=== PATIENT | female | born 1970 | race Caucasian/White ===

== ENCOUNTER 2017-09-03 17:13 | Emergency (ER) | payer SELFPAY ==
[~2017-09-03] VITALS: Ht 161.3 cm; Wt 57.9 kg
[2017-09-03 17:29] VITALS: TEMP 36.9; Ht 161.3 cm; Wt 57.9 kg
[2017-09-03] MEDS ORDERED: ACETAMINOPHEN 500 MG TAB PO STA (17:50)
[2017-09-03 18:37] LABS: URINE APPEARANCE CLEAR (CLEAR); URINE BILIRUBIN NEG (NEG); URINE COLOR YELLOW; URINE EPITHELIAL CELL AUTO >30 /lpf (0-5); URINE NITRITE NEG (NEG); URINE SPECIFIC GRAVITY 1.019 (1.000-1.030); UROBILINOGEN NEG (NEG)
[2017-09-03 18:38] LABS: MANUAL MICROSCOPIC REQUIRED? NO; REVIEW REQ? NO
[2017-09-03 18:44] LABS: BASO % 0.4 %; BASO ABS # 0.05 K/uL (0-0.2); COMPLETE YES; EOS % 0.9 %; HEMATOCRIT 43.9 % (37-47); IG% 0.2 %; LYMPH % 25.1 %; LYMPH ABS # 3.29 K/uL (1.2-3.4); MEAN CELL VOLUME 93.8 fL (80-100); MEAN CORPUSCULAR HEMOGLOBIN 31.4 pg (25-34); MEAN CORPUSCULAR HGB CONC 33.5 g/dl (32-36); MEAN PLATELET VOLUME 9.6 fL (7.4-10.4); MONO % 6.1 %; NEUT % 67.3 %; PLATELET COUNT 398 K/uL (130-400); RED BLOOD COUNT 4.68 M/uL (4.2-5.4); WHITE BLOOD COUNT 13.12 K/uL (4.8-10.8)
[2017-09-03 19:15] LABS: ALT/SGPT 19 U/L (12-78); AST/SGOT 10 U/L (15-37); BLOOD UREA NITROGEN 8 mg/dl (7-18); BUN/CREATININE RATIO 11.8 (10-20); CALCIUM 9.1 mg/dl (8.5-10.1); CARBON DIOXIDE 23 mmol/L (21-32); CHLORIDE 107 mmol/L (98-107); CREATININE 0.66 mg/dl (0.60-1.20); GLUCOSE 74 mg/dl (70-99); POTASSIUM 3.6 mmol/L (3.5-5.1); SODIUM 137 mmol/L (136-145)
[2017-09-03 19:26] LABS: ALKALINE PHOSPHATASE 81 U/L (45-117)
[2017-09-03 20:08] LABS: BENZODIAZEPINE, URINE NEG (NEG); COCAINE,URINE NEG (NEG); PHENCYCLIDINE, URINE NEG (NEG)
[2017-09-03] MEDS ORDERED: LORAZEPAM 1 MG TAB SL STA (20:59)
[2017-09-03] MEDS ORDERED: LORAZEPAM 0.5 MG TAB SL STA (20:59)
[2017-09-03] MEDS ORDERED: NICOTINE 14 MG/24 HR TDSY ONE (21:00)
[2017-09-03 22:47] VITALS: BP 124/67; PULSE 62; O2SAT 98
--- NOTE | 2017-09-03 23:34 | EMERGENCY ROOM VISIT NOTE ---
History Report prepared by Yessenia: Ghislaine Wisdom Under the Supervision of: Edmundo PadronO. First contact with patient: 17:40 Chief Complaint: DETOX REQUEST Stated Complaint: METH WITHDRAWL History of Present Illness The patient is a 47 year old female who presents to the Emergency Room with complaints of a detox request today. 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 She states that she has been using about 1 gram since February, but that sometimes she will have more and sometimes less. She reports that the last time she used it was 5 days ago. The patient denies thoughts of hurting herself and others. The patient reports having a headache today in the front of her head that began 5 days ago when she last used crystal meth. Pt denies change in vision, fevers, chest pain, shortness of breath, nausea, vomiting, diarrhea, pain with urination. The patient reports that her last menstrual period was 2 weeks ago and that she had it for a day. The patient reports having a history of anxiety and depression. The patient stated to the nursing staff that she wants to kill herself. Source of History: patient Onset: today Position: other (global) Quality: other (detox request ) Associated Symptoms: + headache, No chest pain, No SOB, No nausea, No vomiting, No diarrhea Review of Systems See HPI for pertinent positives & negatives. A total of 10 systems reviewed and were otherwise negative. Past Medical & Surgical Medical Problems: (1) Anxiety (2) Depression Family History No pertinent family history stated. Social History Smoking Status: Current Every Day Smoker Drug Use: other (crystal meth ) Marital Status: single Current/Historical Medications No Active Prescriptions or Reported Meds Allergies Coded Allergies: No Known Allergies (Unverified , 09/03/17) Physical Exam Vital Signs Date Time Temp Pulse Resp B/P (MAP) Pulse Ox O2 Delivery O2 Flow Rate FiO2 09/03/17 22:47 62 18 124/67 98 Room Air 09/03/17 18:50 68 20 131/90 98 Room Air 09/03/17 17:29 36.9 79 18 129/84 100 Room Air Physical Exam GENERAL: Sitting up in bed, tearful, alert, well appearing, well nourished, no distress, non-toxic EYE EXAM: normal conjunctiva. PERRL and EOM's grossly intact. OROPHARYNX: no exudate, no erythema, lips, buccal mucosa, and tongue normal and mucous membranes are moist NECK: supple, no nuchal rigidity, no adenopathy, non-tender LUNGS: Clear to auscultation. Normal chest wall mechanics HEART: no murmurs, S1 normal and S2 normal ABDOMEN: abdomen soft, non-tender, normo-active bowel sounds, no masses, no rebound or guarding. BACK: Back is symmetrical on inspection and there is no deformity, no midline tenderness, no CVA tenderness. SKIN: no rashes and no bruising UPPER EXTREMITIES: upper extremities are grossly normal. LOWER EXTREMITIES: No pitting edema. NEURO EXAM: Normal sensorium, cranial nerves II-XII intact, normal speech, no weakness of arms, no weakness of legs. No drift. Finger to nose intact. Gross sensation intact. Medical Decision & Procedures Laboratory Results 09/03/17 18:32 Red Blood Count 4.68, Mean Corpuscular Volume 93.8, Mean Corpuscular Hemoglobin 31.4, Mean Corpuscular Hemoglobin Concent 33.5, Mean Platelet Volume 9.6, Neutrophils (%) (Auto) 67.3, Lymphocytes (%) (Auto) 25.1, Monocytes (%) (Auto) 6.1, Eosinophils (%) (Auto) 0.9, Basophils (%) (Auto) 0.4, Neutrophils # (Auto) 8.83, Lymphocytes # (Auto) 3.29, Monocytes # (Auto) 0.80, Eosinophils # (Auto) 0.12, Basophils # (Auto) 0.05 09/03/17 18:32 Test 09/03/17 18:10 09/03/17 18:15 09/03/17 18:32 Urine Color YELLOW Urine Appearance CLEAR (CLEAR) Urine pH 6.0 (4.5-7.5) Urine Specific [place] 1.019 (1.000-1.030) Urine Protein NEG (NEG) Urine Glucose (UA) NEG (NEG) Urine Ketones NEG (NEG) Urine Occult Blood NEG (NEG) Urine Nitrite NEG (NEG) Urine Bilirubin NEG (NEG) Urine Urobilinogen NEG (NEG) Urine Leukocyte Esterase SMALL (NEG) Urine WBC (Auto) 10-30 /hpf (0-5) Urine RBC (Auto) 0-4 /hpf (0-4) Urine Hyaline Casts (Auto) 1-5 /lpf (0-5) Urine Epithelial Cells (Auto) >30 /lpf (0-5) Urine Bacteria (Auto) NEG (NEG) Urine Test NEG (NEG) Urine Opiates Screen NEG (NEG) Urine Methadone, Qualitative NEG (NEG) Urine Barbiturates NEG (NEG) Urine Phencyclidine (PCP) Level NEG (NEG) Ur Amphetamine/Methamphetamine NEG (NEG) MDMA (Ecstasy) Screen NEG (NEG) Urine Benzodiazepines Screen NEG (NEG) Urine Cocaine Metabolite NEG (NEG) Urine Marijuana (THC) NEG (NEG) Bedside Glucose 78 mg/dl (70-90) White Blood Count 13.12 K/uL (4.8-10.8) Red Blood Count 4.68 M/uL (4.2-5.4) Hemoglobin 14.7 g/dL (12.0-16.0) Hematocrit 43.9 % (37-47) Mean Corpuscular Volume 93.8 fL (80-100) Mean Corpuscular Hemoglobin 31.4 pg (25-34) Mean Corpuscular Hemoglobin Concent 33.5 g/dl (32-36) Platelet Count 398 K/uL (130-400) Mean Platelet Volume 9.6 fL (7.4-10.4) Neutrophils (%) (Auto) 67.3 % Lymphocytes (%) (Auto) 25.1 % Monocytes (%) (Auto) 6.1 % Eosinophils (%) (Auto) 0.9 % Basophils (%) (Auto) 0.4 % Neutrophils # (Auto) 8.83 K/uL (1.4-6.5) Lymphocytes # (Auto) 3.29 K/uL (1.2-3.4) Monocytes # (Auto) 0.80 K/uL (0.11-0.59) Eosinophils # (Auto) 0.12 K/uL (0-0.5) Basophils # (Auto) 0.05 K/uL (0-0.2) RDW Standard Deviation 43.0 fL (36.4-46.3) RDW Coefficient of Variation 12.6 % (11.5-14.5) Immature Granulocyte % (Auto) 0.2 % Immature Granulocyte # (Auto) 0.03 K/uL (0.00-0.02) Anion Gap 7.0 mmol/L (3-11) Est Creatinine Clear Calc Drug Dose 91.0 ml/min Estimated GFR () 123.6 Estimated GFR (Non- 106.7 BUN/Creatinine Ratio 11.8 (10-20) Calcium Level 9.1 mg/dl (8.5-10.1) Total Bilirubin 0.3 mg/dl (0.2-1) Direct Bilirubin < 0.1 mg/dl (0-0.2) Aspartate Amino Transf (AST/SGOT) 10 U/L (15-37) Alanine Aminotransferase (ALT/SGPT) 19 U/L (12-78) Alkaline Phosphatase 81 U/L (45-117) Total Protein 8.3 gm/dl (6.4-8.2) Albumin 4.5 gm/dl (3.4-5.0) Thyroid Stimulating Hormone (TSH) 1.630 uIu/ml (0.300-4.500) Ethyl Alcohol mg/dL < 3.0 mg/dl (0-3) Laboratory results per my review. Medications Administered Medications (Trade) Dose Ordered Sig/Sugar Route Start Time Stop Time Status Last Admin Dose Admin Acetaminophen (Tylenol Tab) 1,000 mg NOW STAT PO 09/03/17 17:50 09/03/17 17:51 DC 09/03/17 18:20 1,000 MG Miscellaneous (Remove Nicoderm Patch) 1 ea HS N/A 09/03/17 21:00 09/03/17 23:15 DC 09/03/17 21:00 1 EA Lorazepam (Ativan Tab) 1 mg NOW STAT SL 09/03/17 20:59 09/03/17 21:00 DC 09/03/17 21:08 1 MG Lorazepam (Ativan Tab) 0.5 mg NOW STAT SL 09/03/17 20:59 09/03/17 21:00 DC 09/03/17 21:08 0.5 MG Nicotine (Nicoderm Cq 14MG Patch) 1 patch STK-MED ONCE .ROUTE 09/03/17 21:00 09/03/17 21:01 DC 09/03/17 21:08 1 PATCH ED Course ED COURSE: Vital signs were reviewed and showed normal vitals. The patients medical record was reviewed The above diagnostic studies were performed and reviewed. ED treatments and interventions as stated above. 1742: The patient was evaluated in room A10. A complete history and physical examination was performed. 1749: Ordered Tylenol Tab 1,000 mg PO. 2021: The patient admits to suicidal thoughts. 2056: The patient is anxious and will be given Ativan. 2058: Ordered Ativan Tab 0.5 mg SL, Ativan 1 gm IV. 2099: Ordered Nicotine 1 patch TD. 2109: I reviewed the patient's case with our shelter case manager who arranged the transfer of the patient to [facility]. Medical Decision Patient is a 47-year-old female who presents to ER for quitting meth. She wished to go to rehabilitation. She is also making suicidal statements to both myself and nursing staff. CBC shows a mild leukocytosis. BMP all LFTs, bilirubin and TSH was normal. Tox and alcohol is negative. was negative. UA was negative. Patient was evaluated by psychiatry and was transferred to an outside psychiatric facility following being accepted. Medication Reconcilliation Current Medication List: was personally reviewed by me Blood Pressure Screening Patient's blood pressure: Normal blood pressure Consults Time Called: 1999 Consulting Physician: Slasher Operator Returned Call: [phone] I reviewed the patient's case with our shelter case manager who arranged the transfer of the patient to [facility]. Impression Primary Impression: Mood disorder Additional Impression: Suicidal ideation Scribe Attestation The scribe's documentation has been prepared under my direction and personally reviewed by me in its entirety. I confirm that the note above accurately reflects all work, treatment, procedures, and medical decision making performed by me. Departure Information Dispostion Transfer Acute Care Facility Prescriptions No Active Prescriptions or Reported Meds Referrals No Doctor, Assigned (PCP) Patient Instructions [facility] Problem Qualifiers
[2017-09-04] MEDS ORDERED: NICOTINE 14 MG/24 HR TDSY TD SCH (09:00)
== END 2017-09-03 22:53 ==
LOC: C.EDB 17:16 → C.EDA 22:53
DX: F39 Unspecified mood [affective] disorder (principal); R45.851 Suicidal ideations; F15.90 Other stimulant use, unspecified, uncomplicated; F17.200 Nicotine dependence, unspecified, uncomplicated